=== PATIENT | female | born 1985 | race Caucasian/White ===

== ENCOUNTER 2018-04-29 23:57 | Emergency (ER) | payer MEDICAID ==
--- NOTE | 2018-04-30 00:34 | EDM.PDOC ---
ED HPI GENERAL MEDICAL PROBLEM - General Chief Complaint: Chemical Exposure Stated Complaint: PT HAS CHEMICAL ANAYA ON BODY Time Seen by Provider: 04/30/18 00:22 - History of Present Illness INITIAL COMMENTS - FREE TEXT/NARRATIVE: HISTORY AND PHYSICAL: History of present illness: The patient is a healthy 32-year-old female who is up-to-date on her tetanus shot and presents for evaluation of wounds that were sustained after chemical exposure 2 days while at work. She says that drilling mud and tang got onto her knees bilaterally her ankles bilaterally and area of her but in bilateral wrists and she has been having persistent pain and redness to these areas. She was not seen at the time of the injury and now presents for reevaluation of the wounds. She has been using Neosporin and today did use hydrogen peroxide on the wounds which have advised her against doing going forward. She is concerned about the redness in certain areas and is worried that they might be getting infected. The patient denies . The patient says that there is some discomfort with movement and sitting on her left buttocks but otherwise she is able to do her activities of daily living. She has no systemic complaints that she has fever chills nausea vomiting cough or upper respiratory infections. Review of systems: As per history of present illness and below otherwise all systems reviewed and negative. Past medical history: As per history of present illness and as reviewed below otherwise noncontributory. Surgical history: As per history of present illness and as reviewed below otherwise noncontributory. Social history: No reported history of drug or alcohol abuse. Family history: As per history of present illness and as reviewed below otherwise noncontributory. Physical exam: General: Well-developed well-nourished female who is nontoxic and vital signs reviewed by me HEENT: Atraumatic, normocephalic, negative for conjunctival pallor or scleral icterus, mucous membranes moist, throat clear, neck supple, nontender, trachea midline. Lungs: Clear to auscultation, breath sounds equal bilaterally, chest nontender. Heart: S1S2, regular rate and rhythm no overt murmurs Abdomen: Soft, nondistended, nontender. NABS Pelvis: Stable nontender. Genitourinary: Deferred. Rectal: Deferred. Extremities: Atraumatic with full range of motion of all extremities with the exception of the wounds as described below in the skin exam, negative for cords or calf pain. Neurovascular unremarkable. Neuro: Awake, alert, oriented. Cranial nerves II through XII unremarkable. Cerebellum unremarkable. Motor and sensory unremarkable throughout. Exam nonfocal. Skin: At bilateral ankles almost circumferentially I lateral anterior knees left buttock cheek and bilateral wrist there are punctate scabs and areas of excoriation seen consistent with her injury. There is some tenderness with palpation of the areas and there is some soft tissue swelling in these regions but there is no streaking. The wounds at the left but and bilateral knees but the most excoriated and raw and there are multiple open areas but no weeping. Distally at the toes feet fingers and hands there are no neurosensory or function compromise Diagnostics: [] Therapeutics: [] Impression: Chemical exposure to bilateral ankles wrists and knees and left butt, early cellulitis Definitive disposition and diagnosis as appropriate pending reevaluation and review of above. - Related Data Allergies Allergy/AdvReac Type Severity Reaction Status Date / Time ketorolac [From Toradol] Allergy Burning Verified 04/30/18 00:19 Home Meds: Home Meds . [No Known Home Meds] 04/30/18 [History] ED ROS GENERAL - Review of Systems Review Of Systems: ROS reveals no pertinent complaints other than HPI. ED EXAM, BURN/SMOKE INHALATION - Physical Exam Exam: See Below (See dictation) Course - Vital Signs Last Recorded V/S: Last Vital Signs Temp 36.3 C 04/30/18 00:15 Pulse 100 04/30/18 00:15 Resp 18 04/30/18 00:15 BP 141/82 H 04/30/18 00:15 Pulse Ox 96 04/30/18 00:15 Departure - Departure Time of Disposition: 00:32 Disposition: Home, Self-Care 01 Condition: Good Clinical Impression: Chemical burn Cellulitis Qualifiers: Site of cellulitis: unspecified site Qualified Code(s): L03.90 - Cellulitis, unspecified - Discharge Information Referrals: PCP,None [Primary Care Provider] - Additional Instructions: The following information is given to patients seen in the emergency department who are being discharged to home. This information is to outline your options for follow-up care. We provide all patients seen in our emergency department with a follow-up referral. The need for follow-up, as well as the timing and circumstances, are variable depending upon the specifics of your emergency department visit. If you don't have a primary care physician on staff, we will provide you with a referral. We always advise you to contact your personal physician following an emergency department visit to inform them of the circumstance of the visit and for follow-up with them and/or the need for any referrals to a consulting specialist. The emergency department will also refer you to a specialist when appropriate. This referral assures that you have the opportunity for followup care with a specialist. All of these measure are taken in an effort to provide you with optimal care, which includes your followup. Under all circumstances we always encourage you to contact your private physician who remains a resource for coordinating your care. When calling for followup care, please make the office aware that this follow-up is from your recent emergency room visit. If for any reason you are refused follow-up, please contact the [facility] emergency department at and ask to speak to the emergency department charge nurse. [facility] Primary care- [place] [address] Plans areas with mild soap and water and pat dry, do not use hydrogen peroxide or alcohol to these areas. Apply bacitracin or Neosporin and thin layers and you may apply nonstick dressings to protect them but try to leave open to air as much as possible. Take antibiotics as directed. Use [id number] Tylenol or ibuprofen for pain or any of your home medications. Call and schedule a follow-up appointment with one of our providers and also check in with your occupational health provider from your employer for reevaluation. Return to ER as needed and as discussed Have been given Keflex from [employer]
== END 2018-04-30 00:43 | disposition home or self-care (01) ==
LOC: MW.ED 23:57
DX: T25.412A Corrosion of unspecified degree of left ankle, initial encounter (principal); T25.411A Corrosion of unspecified degree of right ankle, initial encounter; T23.472A Corrosion of unspecified degree of left wrist, initial encounter; T23.471A Corrosion of unspecified degree of right wrist, initial encounter; T24.422A Corrosion of unspecified degree of left knee, initial encounter; T24.421A Corrosion of unspecified degree of right knee, initial encounter; T21.45XA Corrosion of unspecified degree of buttock, initial encounter; L03.90 Cellulitis, unspecified; Z88.6 Allergy status to analgesic agent
CPT/HCPCS: 99283

== ENCOUNTER 2018-08-02 08:41 | Emergency (ER) | payer SELFPAY ==
--- NOTE | 2018-08-02 09:50 | EDM.PDOC ---
ED HPI GENERAL MEDICAL PROBLEM - General Chief Complaint: Genitourinary Problem Stated Complaint: UTI Time Seen by Provider: 08/02/18 09:48 Source of Information: Reports: Patient - History of Present Illness INITIAL COMMENTS - FREE TEXT/NARRATIVE: HISTORY AND PHYSICAL: History of present illness: []Shunt presents with urinary burning and frequency dysuria over the last few days she has a concern of . She is starting her period today no fever nausea vomiting chills sweats Review of systems: As per history of present illness and below otherwise all systems reviewed and negative. Past medical history: As per history of present illness and as reviewed below otherwise noncontributory. Surgical history: As per history of present illness and as reviewed below otherwise noncontributory. Social history: No reported history of drug or alcohol abuse. Family history: As per history of present illness and as reviewed below otherwise noncontributory. Physical exam: HEENT: Atraumatic, normocephalic, pupils reactive, negative for conjunctival pallor or scleral icterus, mucous membranes moist, throat clear, neck supple, nontender, trachea midline. Lungs: Clear to auscultation, breath sounds equal bilaterally, chest nontender. Heart: S1S2, regular, negative for clicks, rubs, or JVD. Abdomen: Soft, nondistended, nontender. Negative for masses or hepatosplenomegaly. Negative for costovertebral tenderness. Pelvis: Stable nontender. Genitourinary: Deferred. Rectal: Deferred. Extremities: Atraumatic, negative for cords or calf pain. Neurovascular unremarkable. Neuro: Awake, alert, oriented. Cranial nerves II through XII unremarkable. Cerebellum unremarkable. Motor and sensory unremarkable throughout. Exam nonfocal. Diagnostics: [UA hCG ] Therapeutics: [Cipro Diflucan ] Impression: [ UTI ] Definitive disposition and diagnosis as appropriate pending reevaluation and review of above. - Related Data Allergies Allergy/AdvReac Type Severity Reaction Status Date / Time ketorolac [From Toradol] Allergy Burning Verified 08/02/18 09:15 Home Meds: Home Meds . [No Known Home Meds] 04/30/18 [History] Past Medical History [employer] History: Reports: - Infectious Disease History Infectious Disease History: Reports: Chicken Pox - Past Surgical History HEENT Surgical History: Reports: Eye Surgery GI Surgical History: Reports: Appendectomy Female Surgical History: Reports: Section Musculoskeletal Surgical History: Reports: Arthroscopic Knee, Arthroscopic Procedure, Other (See Below) Other Musculoskeletal Surgeries/Procedures:: R knee ACL repair. L Knee full ligament repair Social & Family History - Family History Family Medical History: Noncontributory - Tobacco Use Smoking Status *Q: Never Smoker - Recreational Drug Use Recreational Drug Use: No ED ROS GENERAL - Review of Systems Review Of Systems: See Below ED EXAM, GENERAL - Physical Exam Exam: See Below Course - Vital Signs Last Recorded V/S: Last Vital Signs Temp 96.9 F 08/02/18 09:13 Pulse 92 08/02/18 09:13 Resp 18 08/02/18 09:13 BP 133/82 08/02/18 09:13 Pulse Ox 99 08/02/18 09:13 - Orders/Labs/Meds Orders: Active Orders 24 hr Category Date Time Status CULTURE URINE [RM] Stat Lab 08/02/18 09:18 Received Labs: Laboratory Tests 08/02/18 08/02/18 Range/Units 09:18 09:18 Urine Color YELLOW Urine Appearance SLT CLOUDY Urine pH 5.0 (5.0-8.0) Ur Specific [place] >= 1.030 (1.001-1.035) Urine Protein NEGATIVE (NEGATIVE) mg/dL Urine Glucose (UA) NEGATIVE (NEGATIVE) mg/dL Urine Ketones NEGATIVE (NEGATIVE) mg/dL Urine Occult Blood NEGATIVE (NEGATIVE) Urine Nitrite NEGATIVE (NEGATIVE) Urine Bilirubin NEGATIVE (NEGATIVE) Urine Urobilinogen 0.2 (<2.0) EU/dL Ur Leukocyte Esterase TRACE H (NEGATIVE) Urine RBC 0-1 (0-2/HPF) Urine WBC 4-8 (0-5/HPF) Ur Epithelial Cells MODERATE (NONE-FEW) Amorphous Sediment LIGHT (NEGATIVE) Urine Bacteria 2+ H (NEGATIVE) Urine Mucus LIGHT (NONE-MOD) Urine HCG, Qual NEGATIVE (NEGATIVE) Departure - Departure Time of Disposition: 09:49 Disposition: Home, Self-Care 01 Condition: Good Clinical Impression: UTI, Urinary tract infectious disease - Discharge Information Referrals: PCP,Unknown [Primary Care Provider] - Forms: ED Department Discharge Additional Instructions: The following information is given to patients seen in the emergency department who are being discharged to home. This information is to outline your options for follow-up care. We provide all patients seen in our emergency department with a follow-up referral. The need for follow-up, as well as the timing and circumstances, are variable depending upon the specifics of your emergency department visit. If you don't have a primary care physician on staff, we will provide you with a referral. We always advise you to contact your personal physician following an emergency department visit to inform them of the circumstance of the visit and for follow-up with them and/or the need for any referrals to a consulting specialist. The emergency department will also refer you to a specialist when appropriate. This referral assures that you have the opportunity for follow-up care with a specialist. All of these measure are taken in an effort to provide you with optimal care, which includes your follow-up. Under all circumstances we always encourage you to contact your private physician who remains a resource for coordinating your care. When calling for follow-up care, please make the office aware that this follow-up is from your recent emergency room visit. If for any reason you are refused follow-up, please contact the [facility] emergency department at and asked to speak to the emergency department charge nurse. - My Orders Last 24 Hours: My Active Orders 08/02/18 09:18 CULTURE URINE [RM] Stat - Assessment/Plan Last 24 Hours: My Active Orders 08/02/18 09:18 CULTURE URINE [RM] Stat
== END 2018-08-02 10:01 | disposition home or self-care (01) ==
LOC: MW.ED 08:41
DX: N39.0 Urinary tract infection, site not specified (principal); Z88.5 Allergy status to narcotic agent
CPT/HCPCS: 81001; 81025; 87086; 99283